=== PATIENT | male | born 1960 | race Caucasian/White ===

== ENCOUNTER 2023-06-26 06:02 | Day surgery (SDC) | payer OTHER, SELFPAY ==
[2023-06-26 06:16] VITALS: BP 119/87; PULSE 94; RESP 18; TEMP 36.8; O2SAT 95
[2023-06-26] MEDS: Lactated Ringers 1,000 ML 80 ML IV (06:55)
--- NOTE | 2023-06-26 07:00 | W.ANESPRE ---
General Info Date of Service Date Performed: 06/26/23 Height: 5 ft 9 in Weight: 113.2 kg Body Mass Index (BMI): 36.8 Surgical Procedure: Operation Date: 06/26/23 07:40 Proposed Procedure Side Surgeon p Wrist ECTR Left Anup Fierro MD Meds Allergies and Home Medications Allergies Allergy/AdvReac Type Severity Reaction Status Date / Time No Known Allergies Allergy Verified 06/26/23 06:38 Home Medication Medication Instructions Recorded amlodipine 10 mg tablet 10 mg PO DAILY 01/03/23 aspirin 81 mg tablet,delayed 81 mg PO DAILY 01/03/23 release (Adult Aspirin Regimen) lisinopril 20 2 tab PO DAILY 01/03/23 mg-hydrochlorothiazide 12.5 mg tablet metformin 1,000 mg tablet 500 mg PO BID 01/03/23 Current Visit Medications: Current Medications Generic Name Dose Route Start Last Admin Trade Name Freq PRN Reason Stop Dose Admin Ringer's Solution 1,000 mls @ 80 mls/hr 06/26/23 06:00 IV 07/25/23 23:59 INFUSION HUA Cefazolin Sodium/Dextrose 2 gm in 50 mls @ 100 mls/hr 06/26/23 06:00 Ancef Duplex IVPB 07/25/23 23:59 PREOP HUA IV Miscellaneous Supplies 1 each 06/26/23 06:00 Iv Access IV 07/25/23 23:59 DIRECTED HUA Sodium Chloride 0 ml 06/26/23 06:00 Normal Saline Flush 10 Ml Syr IV 07/25/23 23:59 PRN PRN Sodium Chloride 0 ml 06/26/23 06:00 Normal Saline 10 Ml Vial IJ 07/25/23 23:59 DIRECTED PRN Sterile Water 0 ml 06/26/23 06:00 Water,Injection,Sterile 10 Ml Vial IJ 07/25/23 23:59 DIRECTED PRN PFSH Active Problems Active Problems: Problem Status Onset Code Left carpal tunnel syndrome G56.02 Essential hypertension I10 Glucose intolerance E74.39 Nicotine dependence F17.200 Skin lesion of chest wall L98.9 Paresthesias in left hand R20.2 Medical History Medical History Colon polyps Surgical History Surgical History H/O colonoscopy Tobacco Smoking/Tobacco Use Status: Current every day Tobacco Type: cigarettes Smoking cigarettes per day: 7 Alcohol Alcohol Intake: former Substance Use Substance use: Never Substance use type: does not use Vital Signs and Lab Results Vital Signs Most Recent Vital Signs in EMR: Most Recent Vital Signs Temp Pulse Resp BP Pulse Ox 36.8 C 94 H 18 119/87 95 06/26/23 06:16 06/26/23 06:16 06/26/23 06:16 06/26/23 06:16 06/26/23 06:16 Lab Results Blood Type / Crossmatch: No Data to Display Complete Blood Count: No Data to Display Complete Metabolic Panel: No Data to Display Liver Function Panel: No Data to Display Coagulation Panel: No Data to Display Cardiac Panel: No Data to Display Arterial Blood Gas: No Data to Display Venous Blood Gas: No Data to Display Pancreas Panel: No Data to Display Thyroid Panel: No Data to Display Infectious Disease: No Data to Display Blood Cultures: No Data to Display Toxicology Panel: No Data to Display Anesthesia Assessment and Plan Anesthesia History Personal History: No History of Anesthesia Complications Family History: No Family History of Anesthesia Complications Exercise Tolerance Exercise Tolerance: Metabolic Equivalents>4 Pertinent Negatives Pertinent Negatives: No Symptoms of GERD, No Major Cardiovascular Symptoms or Complaints, No Major Pulmonary Symptoms or Complaints and No History of CVA/TIA Cardiac & Pulmonary Exam Cardiac Exam: Normal S1/S2 Heart Sounds Pulmonary Exam: Clear Bilateral Breath Sounds Implantable Cardiac Device Does patient have a Pacemaker or an ICD?: No Airway Exam Known Difficult Airway: No Mallampati Class: 4 Mouth Opening: Normal (> 3cm) Thyromental Distance: Greater than 3 cm Neck Range of Motion: Full ROM Neck Circumference: Thick Teeth Condition: Normal Dentition ASA Classification ASA Score: ASA 2 Emergency Case?: No NPO Status NPO Status: NPO Clears >2 hours, Solids >8 hours Anesthesia Plan Resuscitation Status: Full Code Anesthesia Technique: General Anesthesia Airway Planned: Natural Airway Monitors Used: Standard Monitors
[2023-06-26 07:04] VITALS: BMI 36.8
--- NOTE | 2023-06-26 07:12 | PDOC.DSDIS_ITS ---
Date of service: 06/26/23 Time of Service: 07:12 Discharge Plan Disposition Patient Disposition: Home Condition: Good Discharge Details Reason For Visit: Ilda ECTR Attending Provider: Anup Fierro Primary Care Provider: HERRERA MALDONADO Home Meds and New Rx's Prescriptions: New acetaminophen 500 mg tablet 1,000 mg PO TID Qty: 90 0RF hydrocodone-acetaminophen 5-325 mg tablet 1 tab PO Q6H PRN (Reason: pain) Qty: 6 0RF ibuprofen 600 mg tablet 600 mg PO TID PRN (Reason: pain) Qty: 90 0RF Continued metformin 1,000 mg tablet 500 mg PO BID amlodipine 10 mg tablet 10 mg PO DAILY lisinopril-hydrochlorothiazide 20-12.5 mg tablet 2 tab PO DAILY aspirin [Adult Aspirin Regimen] 81 mg tablet,delayed release (DR/EC) 81 mg PO DAILY Discharge Instructions Stand Alone Forms: Vadim Mckeon Tunnel Release Referrals: Anup Fierro MD [ [facility] STAFF PHYSICIAN] - Activity:: Activity as Tolerated Remove Dressings/Wound Care:: 48 hours Shower/Bathe:: 48 hours Diet:: As Tolerated Discharge Orders Discharge Orders: Discharge Order (Routine); Ordered 06/26/23 Ordered By: Luis Awad DS: Diagnosis Discharge Diagnosis (1) Left carpal tunnel syndrome: Status: Acute
--- NOTE | 2023-06-26 07:21 | W.PREOPHP ---
Assessment and Plan Assessment and plan (1) Left carpal tunnel syndrome: Status: Acute Assessment and plan: Andre is a 62-year-old who has carpal tunnel syndrome on the left side. He is here today for a left carpal tunnel release. I discussed the technical details of carpal tunnel release and that I perform an endoscopic release, but would make a larger, open, incision if necessary for visualization. I discussed the risks of the procedure to include, but not limited to, bleeding, infection, palmar pain, stiffness, damage to nerves, damage to vessels, damage to tendons, weakness, recurrence, and incomplete release. Given these risks, Andre desires to proceed. History of Present Illness Narrative: Andre is here for left carpal tunnel syndrome. Please see the previous office note for complete detailed history. He has no changes to his history. He has no chest pain or shortness of breath. Review of Systems All systems reviewed & are unremarkable except as noted in HPI and below PFSH All Active Problems Left carpal tunnel syndrome (Acute) S/P ECTR: 06/26/2023 Essential hypertension (Acute) Glucose intolerance (Acute) Nicotine dependence (Acute) Skin lesion of chest wall (Acute) Paresthesias in left hand (Acute) Medical History Colon polyps Surgical History H/O colonoscopy Social History Smoking/Tobacco Use Status: Current every day Tobacco Type: cigarettes Smoking risk assessment performed?: Yes Alcohol Intake: former Drug use: Never Substance use type: does not use Housing: house Do you feel safe at home: Yes Do you feel safe in your relationship?: Yes Meds Allergies and Home Medications Allergies Allergy/AdvReac Type Severity Reaction Status Date / Time No Known Allergies Allergy Verified 06/26/23 06:38 Home Medications Medication Instructions Recorded Confirmed Type amlodipine 10 mg tablet 10 mg PO DAILY 01/03/23 06/26/23 History aspirin 81 mg tablet,delayed 81 mg PO DAILY 01/03/23 06/26/23 History release (Adult Aspirin Regimen) lisinopril 20 2 tab PO DAILY 01/03/23 06/26/23 History mg-hydrochlorothiazide 12.5 mg tablet metformin 1,000 mg tablet 500 mg PO BID 01/03/23 06/26/23 History acetaminophen 500 mg tablet 1,000 mg (2 x 500 mg) PO TID #90 06/26/23 Rx tabs hydrocodone 5 mg-acetaminophen 325 1 tab PO Q6H PRN pain #6 tabs 06/26/23 Rx mg tablet ibuprofen 600 mg tablet 600 mg PO TID PRN pain #90 tabs 06/26/23 Rx Exam Resp Effort & Inspection: normal respiratory effort Auscultation: clear to auscultation bilaterally Cardio Rate: regular rate Rhythm: regular rhythm Results Last Vital Signs Temp 36.8 C 06/26/23 06:16 Pulse 94 H 06/26/23 06:16 Resp 18 06/26/23 06:16 BP 119/87 06/26/23 06:16 Pulse Ox 95 06/26/23 06:16
[2023-06-26] MEDS: ceFAZolin 2 GM/50 ML BAG IVPB (07:27)
[2023-06-26] MEDS: Lidocaine 1.5 % Pres-Free W/EPI 1/200,000 30 ML VIAL (07:38)
[2023-06-26 07:50] VITALS: BP 102/69; PULSE 90; RESP 16; TEMP 36.6; O2SAT 92
--- NOTE | 2023-06-26 07:55 | W.PM.OP ---
Date of service: 06/26/23 Time of Service: 07:30 Operative Note Operative Note DATE OF PROCEDURE: 06/26/23 PRE-OP DIAGNOSIS: Left Carpal Tunnel Syndrome POST-OP DIAGNOSIS: same PROCEDURE: Left Endoscopic Carpal Tunnel Release SURGEON: Anup Fierro ANESTHESIA TYPE: General:No Airway Refer to Anesthesia Record ESTIMATED BLOOD LOSS: 0 PATHOLOGY: none sent TOURNIQUET TIME: 4 COMPLICATIONS: None Patient was transported to: same day Patient's condition: stable Indications: I have seen Andre in clinic for symptoms of carpal tunnel syndrome. The numbness, tingling, and pain limited function. Clinical exam findings confirmed the diagnosis of carpal tunnel syndrome. Nonoperative measures such as bracing, time, activity modifications had been tried but disability and pain persisted. I discussed carpal tunnel release with the patient. I reviewed the risks of the procedure to include, but not limited to, bleeding, infection, pain, stiffness, incomplete release, damage to nerves or vessels, persistent numbness, recurrence. Despite these risks, the patient elected to proceed. Findings: There was tightened carpal tunnel. This was dilated and released successfully with the endoscopic with increased space within the tunnel. The antebrachial fascia was released proximally freeing the median nerve at the wrist. Procedure Description: Andre was greeted in the preoperative holding area where the correct side was identified and marked. The consent was reviewed with the patient and signed. The history and physical was updated. All questions were answered. He was taken back to the operating room. The patient was placed into the supine position on the operating room table with the left arm on an arm board. A nonsterile tourniquet was placed high onto the arm. All bony prominences were well padded. Prophylactic antibiotics in the form of Cefazolin were administered. The left arm was then prepped with Chloraprep and draped in a standard fashion with stockinette and extremity drape. A timeout to confirm correct identity, side and site, procedure, allergies, anesthesia, and medical concerns was performed. The surgical site was marked in the volar wrist creases in line with the radial border of the fourth ray. This area was anesthetized with approximately 6cc of 1% Lidocaine. The limb was then exsanguinated with an Esmarch. The skin was incised with a 15 blade, approximately 1cm. The skin only was cut and the deeper tissue was dissected bluntly with a tenotomy scissor, avoiding passing nerve and venous structures. The fascia was penetrated and opened bluntly. A two-prong skin hook was placed under this proximal fascial edge. A series of hamate finders were used to identify and dilate the carpal tunnel. Synovial elevator was used to free synovial attachments to the underside of the transverse carpal ligament. My thumb was kept in the palm to ce the distal extent of the carpal tunnel and correctly position the hand. The [employer] endoscope was inserted without difficulty and without resistance. Excellent visualization showed horizontally running fibers of the transverse carpal ligament (TCL). The distal extent of the TCL was visualized and the end of the scope palpated with the thumb. The blade was elevated and withdrawn from distal to proximal. The TCL was split into two flaps. The endoscope was reinserted to confirm complete release and any remnant ligament was incised. The scope was withdrawn and the proximal aspect of the carpal tunnel was grossly inspected and appeared release with the median nerve visible. The antebrachial fascia at the level of the wrist was then freed from the overlying skin and then the underlying median nerve with blunt dissection. This was transected longitudinally for about 3cm proximal to the wrist incision. The wound was then irrigated with easy flow of irrigant distally and proximally. The incision was closed with a single 4-0 Nylon suture. The wound was dressed with Xeroform, Gauze, Kerlix and Sonny. The tourniquet was deflated with the initial dressing and held with some pressure. Blood flow returned easily to all digits with capillary refill less than 2 seconds. The patient tolerated the procedure well and was returned to the Same Day Surgery area in a stable condition suffering no known complication.
--- NOTE | 2023-06-26 08:18 | W.ANESPOSTOP ---
Postoperative Evaluation Date, Time and Location Date Performed: 06/26/23 Time Performed: 08:18 Patient Location: Day Surgery Unit Vital Signs Most Recent Imported Vital Signs: Most Recent Vital Signs Temp Pulse Resp BP Pulse Ox 36.6 C 90 16 102/69 92 06/26/23 07:50 06/26/23 07:50 06/26/23 07:50 06/26/23 07:50 06/26/23 07:50 Pain Score Most Recent Pain Score: Most Recent Pain Score Pain Level 0 06/26/23 07:50 Assessment Mental Status: Awake (Alert & Oriented to Patient Baseline) Airway and Respiratory Function: Patent airway with normal (patient baseline) respiratory exam Cardiovascular Function: Hemodynamically Stable Hydration Status: Adequately Hydrated Nausea & Vomiting: No Nausea or Vomiting Pain: Pt. Denies Any Pain Peripheral Nerve Block: Patient did not receive a nerve block
[2023-06-26 08:24] VITALS: BP 105/71; PULSE 92; RESP 18; TEMP 36.6; O2SAT 97
== END 2023-06-26 08:45 | disposition home or self-care (01) ==
PROVIDERS: PCP Nurse Practitioner; Visit Provider Student in an Organized Health Care Education/Training Program
PROC: 01N54ZZ Release Median Nerve, Percutaneous Endoscopic Approach (ICD-10-PCS; CPT 29848; principal; 2023-06-26 07:30)
DX: G56.02 Carpal tunnel syndrome, left upper limb (principal)
CPT/HCPCS: 29848; 00123; J0690; J1885; J2001; J2405; J2704